=== PATIENT | female | born 1970 | race Caucasian/White ===

== ENCOUNTER 2024-11-29 10:58 | Emergency (ER) | payer OTHER ==
[~2024-11-29] VITALS: Ht 157.5 cm; Wt 86.2 kg
[2024-11-29 11:02] VITALS: BP 136/89
[2024-11-29] MEDS ORDERED: APIXABAN 5 MG TABLET ONE (11:55)
[2024-11-29] MEDS: APIXABAN 5 MG TABLET PO ONE (11:59)
[2024-11-29] MEDS ORDERED: APIX5TAB4 PO (11:59)
[2024-11-29 12:42] VITALS: BP 130/85; O2SAT 99
== END 2024-11-29 12:44 | disposition home or self-care (01) ==
LOC: ER 10:58
DX: I26.99 Other pulmonary embolism without acute cor pulmonale (principal); Z79.01 Long term (current) use of anticoagulants; Z90.710 Acquired absence of both cervix and uterus
CPT/HCPCS: 93005; A4606; A4663